=== PATIENT | female | born 1995 | race Caucasian/White ===

== ENCOUNTER 2018-01-10 22:36 | Emergency (ER) | payer MEDICAID ==
[~2018-01-10] VITALS: Ht 172.7 cm; Wt 100.0 kg
[2018-01-11] MEDS ORDERED: IBUPROFEN 600MG TABLET PO ONE (01:30)
[2018-01-11 01:36] VITALS: BP 122/70
== END 2018-01-11 01:38 | disposition home or self-care (01) ==
LOC: ER 22:36
DX: S63.616A Unspecified sprain of right little finger, initial encounter (principal); V49.88XA Car occupant (driver) (passenger) injured in other specified transport accidents, initial encounter; Y93.89 Activity, other specified; Y92.89 Other specified places as the place of occurrence of the external cause; Y99.8 Other external cause status
CPT/HCPCS: 29130; 73130; 81025; 99284

== ENCOUNTER 2018-06-10 14:28 | Emergency (ER) | payer MEDICAID ==
[~2018-06-10] VITALS: Ht 162.6 cm; Wt 90.0 kg
[2018-06-10] MEDS ORDERED: LORAZEPAM 0.5MG TABLET PO ONE (15:30)
[2018-06-10] MEDS ORDERED: BACITRACIN ZINC OINT UDPKT TOP ONE (17:00)
[2018-06-10] MEDS ORDERED: IBUPROFEN 600MG TABLET PO ONE (17:00)
[2018-06-10 17:26] VITALS: BP 136/89
== END 2018-06-10 17:39 | disposition home or self-care (01) ==
LOC: ER 15:37
DX: S90.512A Abrasion, left ankle, initial encounter (principal); S60.811A Abrasion of right wrist, initial encounter; F41.0 Panic disorder [episodic paroxysmal anxiety]; V48.4XXA Person boarding or alighting a car injured in noncollision transport accident, initial encounter; Y93.89 Activity, other specified; Y92.89 Other specified places as the place of occurrence of the external cause; Y99.8 Other external cause status
CPT/HCPCS: 99284

== ENCOUNTER 2018-06-11 21:01 | Emergency (ER) | payer MEDICAID ==
[~2018-06-11] VITALS: Ht 170.2 cm; Wt 82.0 kg
[2018-06-11 21:20] VITALS: BP 114/72
== END 2018-06-12 01:20 | disposition left against medical advice (07) ==
LOC: ER 21:01
DX: M25.571 Pain in right ankle and joints of right foot (principal); J45.909 Unspecified asthma, uncomplicated; F17.200 Nicotine dependence, unspecified, uncomplicated; Z53.21 Procedure and treatment not carried out due to patient leaving prior to being seen by health care provider